=== PATIENT | male | born 1940 | race Caucasian/White ===

== ENCOUNTER → 2016-09-08 | Outpatient (CLI) | payer MEDICARE ==
[2016-09-08 12:44] LABS: ASPARTATE AMINO TRANSFERASE 100 U/L (15-37); BLOOD UREA NITROGEN 29 mg/dL (7-18)
== END | disposition home or self-care (01) ==
LOC: CFH 06:55
PROVIDERS: ATTEND Internal Medicine Cardiovascular Disease
DX: I48.91 Unspecified atrial fibrillation (principal); I08.1 Rheumatic disorders of both mitral and tricuspid valves; I12.9 Hypertensive chronic kidney disease with stage 1 through stage 4 chronic kidney disease, or unspecified chronic kidney disease; N18.9 Chronic kidney disease, unspecified; J84.10 Pulmonary fibrosis, unspecified; E11.9 Type 2 diabetes mellitus without complications; R53.83 Other fatigue
CPT/HCPCS: 36415; 71020; 80053; 80061; 83880; 84436; 84481; 85025; 93306

== ENCOUNTER 2017-09-06 07:55 | Observation (INO) | payer MEDICARE ==
[~2017-09-06] VITALS: Ht 177.8 cm; Wt 89.3 kg
[2017-09-06] MEDS: SODIUM CHLORIDE 0.9% 1,000 ML IV SCH ×2 (08:22→16:22)
[2017-09-06 08:26] VITALS: BP 97/68
[2017-09-06] MEDS ORDERED: VANCOMYCIN PMX 1GM/200ML 200 ML IVPB SCH (08:30)
[2017-09-06] MEDS ORDERED: ketoconazole shampoo TP (08:51)
[2017-09-06] MEDS ORDERED: OLME40TA12 PO (08:51)
[2017-09-06] MEDS ORDERED: VIT1CAPS10 PO (08:51)
[2017-09-06] MEDS ORDERED: VENL75TA PO (08:51)
[2017-09-06] MEDS ORDERED: LEVO50TA5 PO (08:51)
[2017-09-06] MEDS ORDERED: DOXA2TAB9 PO (08:51)
[2017-09-06] MEDS ORDERED: METO50TA82 PO (08:51)
[2017-09-06] MEDS ORDERED: VALA500T PO (08:51)
[2017-09-06] MEDS ORDERED: TRAM50TA2 PO (08:51)
[2017-09-06] MEDS ORDERED: HYDR-3241 PO (08:51)
[2017-09-06] MEDS ORDERED: MULT-6 PO (08:51)
[2017-09-06] MEDS ORDERED: CHLO4TAB22 PO (08:51)
[2017-09-06] MEDS ORDERED: FURO20TA3 PO (08:51)
[2017-09-06] MEDS ORDERED: OMEP-110 PO (08:51)
[2017-09-06] MEDS ORDERED: APIX5TAB PO (08:51)
[2017-09-06] MEDS ORDERED: PLEASE ENTER ALLERGIES MC SCH (09:00)
[2017-09-06] MEDS ORDERED: MIDAZOLAM 1 MG/ML, 5ML ONE (09:11)
[2017-09-06] MEDS ORDERED: LIDOCAINE/PF 1%, 30ML ONE (09:11)
[2017-09-06] MEDS ORDERED: FENTANYL PF 100 MCG/2ML ONE (09:11)
[2017-09-06] MEDS ORDERED: VANCOMYCIN 500 MG ONE (09:11)
[2017-09-06] MEDS ORDERED: VANCOMYCIN PMX 1GM/200ML 200 ML ONE (11:42)
[2017-09-06 13:24] VITALS: BP 122/84
[2017-09-06] MEDS ORDERED: CHLORPHENIRAMINE 4 MG TABLET PO PRN (13:30)
[2017-09-06 14:00] VITALS: BP 117/68
[2017-09-06] MEDS: DRONEDARONE 400MG TABLET PO SCH (18:23)
[2017-09-06 19:04] VITALS: BP 95/61
[2017-09-06] MEDS: VENLAFAXINE 75MG TABLET PO SCH (20:26)
[2017-09-06] MEDS: METOPROLOL TARTRATE 25 MG TABLET PO SCH (20:26)
[2017-09-06] MEDS: APIXABAN 5 MG TABLET PO SCH (20:26)
[2017-09-06] MEDS: SODIUM CHLORIDE FLUSH 10ML SYR IVF SCH (20:27)
[2017-09-06] MEDS ORDERED: VANCOMYCIN PMX 1GM/200ML 200 ML IVPB ONE (20:30)
[2017-09-07] MEDS ORDERED: VANCOMYCIN PMX 1GM/200ML 200 ML IVPB ONE
[2017-09-07] MEDS: SODIUM CHLORIDE 0.9% 1,000 ML IV SCH ×2 (00:22→07:09)
[2017-09-07 01:02] VITALS: BP 109/72
[2017-09-07] MEDS ORDERED: LEVOTHYROXINE 50 MCG TABLET PO SCH (06:00)
[2017-09-07 07:28] VITALS: BP 118/77
[2017-09-07] MEDS ORDERED: OMEPRAZOLE 20 MG CAPSULE.DR PO SCH (07:30)
[2017-09-07] MEDS: DRONEDARONE 400MG TABLET PO SCH (08:20)
[2017-09-07] MEDS: VENLAFAXINE 75MG TABLET PO SCH (08:22)
[2017-09-07] MEDS: METOPROLOL TARTRATE 25 MG TABLET PO SCH (08:23)
[2017-09-07] MEDS: SODIUM CHLORIDE FLUSH 10ML SYR IVF SCH (08:24)
[2017-09-07] MEDS: APIXABAN 5 MG TABLET PO SCH (08:36)
[2017-09-07] MEDS ORDERED: DRON400T PO (08:42)
[2017-09-07] MEDS ORDERED: VIT C HOMEMEDPO SCH (09:00)
[2017-09-07] MEDS ORDERED: VIT E HOMEMEDPO SCH (09:00)
[2017-09-07] MEDS ORDERED: VALACYCLOVIR 500MG TABLET PO SCH (09:00)
[2017-09-07] MEDS ORDERED: VALSARTAN 320 MG TABLET PO SCH (09:00)
[2017-09-07] MEDS ORDERED: DOXAZOSIN 2MG TABLET PO SCH (09:00)
[2017-09-07] MEDS ORDERED: FUROSEMIDE 40 MG TABLET PO SCH (09:00)
[2017-09-07] MEDS ORDERED: MULTIVITAMIN 1 TABLET PO SCH (09:00)
[2017-09-07] MEDS ORDERED: LUTEIN HOMEMEDPO SCH (09:00)
[2017-09-07] MEDS ORDERED: OMEGA HOMEMEDPO SCH (09:00)
[2017-09-07 09:39] VITALS: BP 106/71
[2017-09-07 10:07] VITALS: BP 152/90
== END 2017-09-07 10:21 | disposition home or self-care (01) ==
LOC: CACL 07:55 → 5SO 12:56 → CACL 14:04 → DCLOUNGE 09-07 10:10
PROVIDERS: ADMIT Internal Medicine Cardiovascular Disease; ATTEND Internal Medicine Cardiovascular Disease
DX: I49.5 Sick sinus syndrome (principal); I48.0 Paroxysmal atrial fibrillation; I13.0 Hypertensive heart and chronic kidney disease with heart failure and stage 1 through stage 4 chronic kidney disease, or unspecified chronic kidney disease; E11.22 Type 2 diabetes mellitus with diabetic chronic kidney disease; N18.9 Chronic kidney disease, unspecified; I50.32 Chronic diastolic (congestive) heart failure; D64.9 Anemia, unspecified; E03.9 Hypothyroidism, unspecified; E78.5 Hyperlipidemia, unspecified; F32.9 Major depressive disorder, single episode, unspecified; K21.9 Gastro-esophageal reflux disease without esophagitis
CPT/HCPCS: 33208; 71045; 96365; 99156; 99157; C1779; C1785; C1892; G0378; J2250; J3010; J3370; J3490

== ENCOUNTER 2020-07-31 09:41 | Outpatient (CLI) | payer MEDICARE ==
[~2020-07-31 09:41] MED LIST: APIX5TAB PO; CHLO4TAB22 PO; DOXA2TAB9 PO; DRON400T6 PO; FURO20TA3 PO; HYDR-3241 PO; LEVO50TA5 PO; METO50TA82 PO; MULT-6 PO; OCUVITE SOFTGE1 EACH PO; OLME40TA12 PO; OMEP-110 PO; TRAM50TA2 PO; VALA500T8 PO; VENL75TA PO; ketoconazole shampoo TP
== END 2020-07-31 23:59 | disposition home or self-care (01) ==
LOC: CFH 09:41
PROVIDERS: ATTEND Internal Medicine Cardiovascular Disease
DX: I08.3 Combined rheumatic disorders of mitral, aortic and tricuspid valves (principal); I13.0 Hypertensive heart and chronic kidney disease with heart failure and stage 1 through stage 4 chronic kidney disease, or unspecified chronic kidney disease; D64.9 Anemia, unspecified; E11.9 Type 2 diabetes mellitus without complications; I48.20 Chronic atrial fibrillation, unspecified; I48.91 Unspecified atrial fibrillation; N18.9 Chronic kidney disease, unspecified; Z95.0 Presence of cardiac pacemaker
CPT/HCPCS: 71046; 93306